=== PATIENT | male | born 1980 | race African-American/Black ===

== ENCOUNTER 2019-03-13 15:22 | Inpatient (IN) | payer OTHER ==
[~2019-03-13] VITALS: Ht 188 cm; Wt 131.1 kg
[2019-03-13] MEDS ORDERED: NS(*) 0.9% 1000 ML BAG 1,000 ML IV ONE ×2 (15:32→16:10)
[2019-03-13] MEDS ORDERED: DIPHTH/TETANUS/ACEL. PERTUSSIS IM ONE (15:35)
[2019-03-13] MEDS ORDERED: fentaNYL CITR 100 MCG/2 ML AMP IVP ONE ×2 (15:35→16:10)
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
[2019-03-13 16:06] LABS: PLATELET COUNT, AUTOMATED 260 K/uL (150-450)
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
[2019-03-13 16:40] LABS: INR 0.98
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
[2019-03-13] MEDS ORDERED: KETAMINE HCL-NS 50 MG/5 ML SYR IVP ONE (17:20)
[2019-03-13] MEDS ORDERED: IOPAMIDOL 76% 150 ML INFUS BTL 150 ML ONE (17:23)
[2019-03-13] MEDS ORDERED: EMS NS 0.9%(*) 1000 ML BAG 1,000 ML IV ONE (17:30)
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
[2019-03-13] MEDS ORDERED: KETOROLAC 15 MG/ML VIAL IVP ONE (17:55)
--- NOTE | 2019-03-13 18:12 | RADIOLOGY IMAGING REPORT ---
FACILITY: [facility] PATIENT NAME: Aniceto Storm : 1980 MR: [id number] V: [id number] EXAM DATE: ORDERING PHYSICIAN: SHILO POSEY TECHNOLOGIST: Location: [facility] Patient: Aniceto Storm : 1980 Visit/Account:[id number] Date of Sevice: 03/13/2019 CHEST SINGLE AP COMPARISONS: Single view chest dated earlier same day. ADDITIONAL PERTINENT HISTORY: Interval placement of a left-sided chest tube. FINDINGS: Life-support: Interval placement of a left-sided small bore chest tube overlying the left mid hemitho rax. Cardiomediastinal silhouette: Negative. Pulmonary vasculature: Negative. Lung aparicio: Negative. Pleural spaces: Negative, specifically no evidence of a pneumothorax on this supine film. Osseous structures: Negative. Surrounding soft tissues: Negative. IMPRESSION: 1. Interval placement of a left-sided chest tube. 2. No acute cardiopulmonary disease noted on this supine view of the chest. Report Dictated By: Arian Miramontes MD at 03/13/2019 6:06 PM Report E-Signed By: Arian Miramontes MD at 03/13/2019 6:08 PM WSN:[email or web address]
[2019-03-13 19:53] VITALS: BP 161/91
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
[2019-03-13] MEDS: oxyCODON/ACET (*)5/325MG (CII) 1 TAB TAB PO PRN (20:51)
[2019-03-13] MEDS: KETOROLAC 15 MG/ML VIAL IVP PRN (20:52)
[2019-03-13 21:00] VITALS: BP 158/72
[2019-03-13] MEDS ORDERED: BACITRACIN OINT 0.9 GM PKT TP PRN (21:25)
[2019-03-13] MEDS ORDERED: NEOMYCIN/POLYMYX/BACITR OINT 1 PACKET TP ONE (21:35)
[2019-03-13] MEDS ORDERED: ONDANSETRON 4 MG/2 ML VIAL IVP PRN (21:45)
[2019-03-13 22:00] VITALS: BP 140/78
[2019-03-13] MEDS ORDERED: KCL/D1/2NS 20 MEQ 1000 ML 1,000 ML IV SCH (22:00)
[2019-03-13 23:00] VITALS: BP 136/85
[2019-03-14] VITALS (19 sets, daily range): BP systolic 119–155; BP diastolic 61–116; Ht 188 cm; Wt 131.1 kg
[2019-03-14] MEDS: GABAPENTIN 100 MG CAP PO SCH ×3 (01:31→16:31)
[2019-03-14] MEDS: oxyCODON/ACET (*)5/325MG (CII) 1 TAB TAB PO PRN ×4 (02:46→22:55)
[2019-03-14 05:16] LABS: PLATELET COUNT, AUTOMATED 217 K/uL (150-450)
--- NOTE | 2019-03-14 06:35 | RADIOLOGY IMAGING REPORT ---
FACILITY: [facility] PATIENT NAME: Aniceto Storm : 1980 MR: [id number] V: [id number] EXAM DATE: ORDERING PHYSICIAN: TUAN LOVE TECHNOLOGIST: Location: [facility] Patient: Aniceto Storm : 1980 Visit/Account:[id number] Date of Sevice: 03/14/2019 Study: CHEST SINGLE AP Indication: Follow-up pneumothorax Comparison study: March 13, 2019 Findings: Semierect portable chest x-ray demonstrates presence of a left-sided chest tube. There is a apical left pneumothorax present. This is estimated to be 15-20%. This is a new finding as compared to the previous study. There is no evidence of pleural effusion or acute infiltrate. IMPRESSION: New left-sided pneumothorax estimated to be 15-20% ANA ROSA Ugarte was made aware of these findings at 6:30 AM Report Dictated By: Praveen Khan at 03/14/2019 6:23 AM Report E-Signed By: Praveen Khan at 03/14/2019 6:31 AM WSN:[id number]
[2019-03-14] MEDS: MORPHINE 2 MG/ML SYR IVP PRN ×4 (08:10→16:32)
--- NOTE | 2019-03-14 09:01 | RADIOLOGY IMAGING REPORT ---
[place] [facility] [place] NAME: Aniceto Storm : 1980 MR: [id number] V: [id number] EXAM DATE: ORDERING PHYSICIAN: TUAN LOVE TECHNOLOGIST: Location: [facility] [place] Patient: Aniceto Storm : 1980 Visit/Account:[id number] Date of Sevice: 03/14/2019 CHEST SINGLE AP History: Chest tube placement FINDINGS: Comparison studies: Comparison to multiple chest x-rays 03/13/[address] 03/13/2019 Tubes and Lines: There is been interval withdrawal of a smallbore chest tube and interval placement of a larger left chest tube with tip projecting over the aortic arch along the medial aspect of the left lung. Lungs and pleura: There is Interval resolution of a small left-sided pneumothorax. Interval develop ing hazy appearance the left lower lung field which probably represents developing atelectasis. Righ t lung well-aerated. Mediastinum: normal. Cardiac silhouette: normal . Osseous structures: Patient has known fractures of the left first through eighth ribs seen on the p revious chest CT. Most of these fractures are not radiographically visible. Second third rib fractu res are seen. IMPRESSION: Interval exchange of a small left chest tube for a larger left chest tube with resolution of a left pneumothorax. Interval developing left basilar atelectasis. Known multiple left rib fractures Report Dictated By: Cortes Frias MD at 03/14/2019 8:50 AM Report E-Signed By: Cortes Frias MD at 03/14/2019 8:56 AM WSN:[email or web address]
[2019-03-14] MEDS: KETOROLAC 15 MG/ML VIAL IVP PRN ×3 (09:12→22:55)
[2019-03-14] MEDS: ENOXAPARIN 30 MG/0.3 ML SYR SC SCH ×2 (09:13→21:07)
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
--- NOTE | 2019-03-14 15:16 | NUR ---
Physical Therapy Impression PT order received. RN reports that she would prefer if pt be evaluated tomorrow d/t pain and discomfort from chest tube placement. Plan to eval 03/15/19. Physical Therapy Goals Patient's Goals
[2019-03-15] VITALS (8 sets, daily range): BP systolic 126–142; BP diastolic 82–91
[2019-03-15] MEDS: GABAPENTIN 100 MG CAP PO SCH ×3 (00:44→16:48)
[2019-03-15] MEDS: oxyCODON/ACET (*)5/325MG (CII) 1 TAB TAB PO PRN ×3 (05:35→21:17)
[2019-03-15] MEDS: KETOROLAC 15 MG/ML VIAL IVP PRN ×2 (05:36→16:48)
--- NOTE | 2019-03-15 06:04 | RADIOLOGY IMAGING REPORT ---
FACILITY: [facility] - [place] PATIENT NAME: Aniceto Storm : 1980 MR: [id number] V: [id number] EXAM DATE: ORDERING PHYSICIAN: TUAN LOVE TECHNOLOGIST: Location: [facility] - [place] Patient: Aniceto Storm : 1980 Visit/Account:[id number] Date of Sevice: 03/15/2019 AP CHEST 03/15/2019 5:00 AM. INDICATION: Left pneumothorax. COMPARISON: Yesterday. FINDINGS: Unchanged left chest tube. Small left apical pneumothorax now apparent. Mild bibasilar atelectasis. No definite pleural effusion. Heart size is unchanged. IMPRESSION: Small left apical pneumothorax now apparent, chest tube in place. Report Dictated By: Wiliam Licona MD at 03/15/2019 5:58 AM Report E-Signed By: Wiliam Licona MD at 03/15/2019 6:01 AM WSN:[id number]
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
[2019-03-15] MEDS: ENOXAPARIN 30 MG/0.3 ML SYR SC SCH ×2 (09:40→21:16)
[2019-03-15] MEDS: MORPHINE 2 MG/ML SYR IVP PRN ×4 (11:05→23:17)
--- NOTE | 2019-03-15 13:55 | NUR ---
Physical Therapy Impression Pt requires Min A for log roll technique during bed mobility, CGA to stand at bedside, and CGA to take 2-3 later steps at bedside using a RW for support and pillow to L-sided bracing. Recommendations pending progress. Physical Therapy Goals 1. Independent functional mobility. 2. Mod I transfers. 3. Mod I gait x 150' with appropriate assistive device. 4. Mod I ascend/descend stairs for home environment. Patient's Goals
[2019-03-16] MEDS: GABAPENTIN 100 MG CAP PO SCH ×3 (00:23→16:57)
[2019-03-16] MEDS: KETOROLAC 15 MG/ML VIAL IVP PRN ×3 (00:23→14:52)
[2019-03-16 05:41] LABS: PLATELET COUNT, AUTOMATED 184 K/uL (150-450)
[2019-03-16] MEDS: oxyCODON/ACET (*)5/325MG (CII) 1 TAB TAB PO PRN ×3 (05:59→19:33)
--- NOTE | 2019-03-16 06:26 | RADIOLOGY IMAGING REPORT ---
FACILITY: [facility] PATIENT NAME: Aniceto Storm : 1980 MR: [id number] V: [id number] EXAM DATE: ORDERING PHYSICIAN: TUAN LOVE TECHNOLOGIST: Location: [facility] Patient: Aniceto Storm : 1980 Visit/Account:[id number] Date of Sevice: 03/16/2019 AP CHEST 03/16/2019 5:00 AM. INDICATION: Left pneumothorax. COMPARISON: Yesterday. FINDINGS: Unchanged left chest tube. Small left apical pneumothorax is not significantly changed. Mild bibasi lar atelectasis. No definite pleural effusion. Heart size is unchanged. IMPRESSION: Unchanged small left apical pneumothorax, chest tube in place. Report Dictated By: Wiliam Licona MD at 03/16/2019 6:22 AM Report E-Signed By: Wiliam Licona MD at 03/16/2019 6:23 AM WSN:[id number]
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
[2019-03-16 08:06] VITALS: BP 132/91
[2019-03-16] MEDS: ENOXAPARIN 30 MG/0.3 ML SYR SC SCH ×2 (08:35→21:25)
[2019-03-16] MEDS: MORPHINE 2 MG/ML SYR IVP PRN ×3 (08:44→21:25)
[2019-03-16 12:37] VITALS: BP 147/96
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
--- NOTE | 2019-03-16 15:19 | RADIOLOGY IMAGING REPORT ---
FACILITY: [facility] - [place] PATIENT NAME: Aniceto Storm : 1980 MR: [id number] V: [id number] EXAM DATE: ORDERING PHYSICIAN: HUMAIRA MCCOLLUM TECHNOLOGIST: Location: [facility] Patient: Aniceto Storm : 1980 Visit/Account:[id number] Date of Sevice: 03/16/2019 Exam type: CHEST SINGLE AP History: pneumothorax Comparison: March 16, 2019 at 5:40 AM. Findings: Multiple displaced left-sided rib fractures again seen. There is a tiny left apical pneumothorax bakari ears slightly decreased. Left chest tube again noted. No definite pleural effusion identified. Mil d by basilar atelectasis appears unchanged. Cardiac silhouette is stable IMPRESSION: 1. Left chest tube again noted with multiple displaced left-sided rib fractures Tiny left apical pneumothorax is slightly decreased Small amount of bibasilar atelectasis is unchanged Report Dictated By: Kamini eVga MD at 03/16/2019 3:11 PM Report E-Signed By: Kamini Vega MD at 03/16/2019 3:15 PM WSN:[email or web address]
[2019-03-16 15:49] VITALS: BP 133/91
[2019-03-16 19:27] VITALS: BP 130/85
[2019-03-16 22:55] VITALS: BP 135/88
[2019-03-17] MEDS: GABAPENTIN 100 MG CAP PO SCH ×3 (00:07→17:04)
[2019-03-17] MEDS: KETOROLAC 15 MG/ML VIAL IVP PRN ×3 (00:08→14:42)
[2019-03-17] MEDS: MORPHINE 2 MG/ML SYR IVP PRN ×5 (00:27→17:04)
[2019-03-17] MEDS: oxyCODON/ACET (*)5/325MG (CII) 1 TAB TAB PO PRN ×3 (05:03→18:34)
--- NOTE | 2019-03-17 06:34 | RADIOLOGY IMAGING REPORT ---
FACILITY: [facility] - [place] PATIENT NAME: Aniceto Storm : 1980 MR: [id number] V: [id number] EXAM DATE: ORDERING PHYSICIAN: HUMAIRA MCCOLLUM TECHNOLOGIST: [place] [facility] [place]iceto [place] : 1980 Visit/Account:[id number] Date of Sevice: 03/17/2019 Study: Single portable view of the chest. Indication: Pneumothorax Comparison study: 03/16/2019 Technique: Single AP view of the chest demonstrates the presence of a small left apical pneumothorax. This is not changed from the previous study. There are multiple left-sided rib fractures noted. Ther e is no evidence of pleural effusion. There is no evidence of acute infiltrate. There is left-sided chest tube present. This is unchanged. IMPRESSION: Small left apical pneumothorax without significant change. Report Dictated By: Praveen Khan at 03/17/2019 6:26 AM Report E-Signed By: Praveen Khan at 03/17/2019 6:30 AM WSN:[id number]
[2019-03-17 07:12] VITALS: BP 133/87
[2019-03-17] MEDS: ENOXAPARIN 30 MG/0.3 ML SYR SC SCH (08:44)
[2019-03-17 11:13] VITALS: BP 146/89
[2019-03-17] MEDS ORDERED: TRAM-420 PO (12:39)
--- NOTE | 2019-03-17 13:59 | RADIOLOGY IMAGING REPORT ---
FACILITY: [facility] - [place] PATIENT NAME: Aniceto Storm : 1980 MR: [id number] V: [id number] EXAM DATE: ORDERING PHYSICIAN: HUMAIRA MCCOLLUM TECHNOLOGIST: Location: [facility] - [place] Patient: Aniceto Storm : 1980 Visit/Account:[id number] Date of Sevice: 03/17/2019 CHEST SINGLE AP Indication: pneumothorax Comparison: Chest x-ray 03/17/2019. Findings: Lungs: The previously seen left-sided chest tube is now absent. There is a small left apical pneumot horax, with the pleural edge 1.4 cm from the rib edge. There are multiple left-sided rib fractures, unchanged. The right lung is clear and well expanded. Mediastinum/pulmonary vasculature: Heart size and pulmonary vasculature are normal. Bones/soft tissues: Normal. IMPRESSION: 1. Small left apical pneumothorax, unchanged from comparison 03/17/2019 at 5:53 AM. 2. The previously seen left-sided chest tube is now absent. 3. Multiple left-sided rib fractures. Report Dictated By: Tayo Ortiz at 03/17/2019 1:53 PM Report E-Signed By: Tayo Ortiz at 03/17/2019 1:55 PM WSN:[email or web address]
--- NOTE | 2019-03-17 14:04 | NUR ---
Physical Therapy Impression Pt able to perform supine>sit with HOB elevated and use of the trapeze bar at SBA level. Pt able to stand with SBA and ambulate 70' without assistive device. Pt attempted to ambulate on room air, however, SO2 decreased to 85%. 1L O2 replaced with SO2 increasing to >88%. Pt safe for DC when medically appropriate. Physical Therapy Goals 1. Independent functional mobility. 2. Mod I transfers. 3. Mod I gait x 150' with appropriate assistive device. 4. Mod I ascend/descend stairs for home environment. Patient's Goals
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
[2019-03-17 14:32] VITALS: BP 128/95
== END 2019-03-17 19:00 | disposition home or self-care (01) | DRG 200 ==
LOC: ER 18:26 → EDBEDREQ 18:43 → MED 18:45 → ICU 18:45 → UNDOADMIN 18:45 → MED 18:46 → ICU 18:46 → MED 03-15 13:30
PROVIDERS: ADMIT Surgery; ATTEND Surgery
PROC: 0W9B30Z Drainage of Left Pleural Cavity with Drainage Device, Percutaneous Approach (ICD-10-PCS; principal; 2019-03-13)
PROC: 0W9B30Z Drainage of Left Pleural Cavity with Drainage Device, Percutaneous Approach (ICD-10-PCS; 2019-03-14)
DX: S27.0XXA Traumatic pneumothorax, initial encounter (principal); S22.42XA Multiple fractures of ribs, left side, initial encounter for closed fracture; F17.210 Nicotine dependence, cigarettes, uncomplicated; V49.9XXA Car occupant (driver) (passenger) injured in unspecified traffic accident, initial encounter; Y92.410 Unspecified street and highway as the place of occurrence of the external cause; Y92.411 Interstate highway as the place of occurrence of the external cause; Z23 Encounter for immunization
CPT/HCPCS: 36415; 36600; 70450; 71045; 71260; 72125; 72170; 74177; 80305; 80320; 81001; 82040; 82247; 82310; 82374; 82435; 82565; 82803; 82947; 83605; 83690; 84075; 84132; 84155; 84295; 84450; 84460; 84520; 84703; 85025; 85610; 85730; 86850; 86900; 86901; 90471; 90715; 96361; 96374; 96375; 97162; 99285; A7048; J1650; J1885; J2270; J3010; J3480; J3490; J7030; Q9967

== ENCOUNTER → 2019-03-30 | Outpatient (CLI) | payer OTHER ==
[2019-03-14 10:14] VITALS: BMI 37.1
[~2019-03-30] MED LIST: TRAM-420 PO
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
== END ==
LOC: RAD 11:32
PROVIDERS: ATTEND Surgery
DX: S22.49XA Multiple fractures of ribs, unspecified side, initial encounter for closed fracture (principal)
CPT/HCPCS: 71046